=== PATIENT | male | born 1985 | race Caucasian/White ===

== ENCOUNTER 2016-11-09 05:38 | Emergency (ER) | payer BC ==
--- NOTE | 2016-11-09 06:00 | EDM.PDOC ---
ED HPI GENERAL MEDICAL PROBLEM - General Chief Complaint: Lower Extremity Injury/Pain Stated Complaint: TENDON PAIN IN LEFT ANKLE Time Seen by Provider: 11/09/16 05:50 Source of Information: Reports: Patient, RN - History of Present Illness INITIAL COMMENTS - FREE TEXT/NARRATIVE: recent pain posterior left ankle. 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 - Related Data Allergies Allergy/AdvReac Type Severity Reaction Status Date / Time acetaminophen [From Vicodin] Allergy Rash Verified 11/09/16 05:52 hydrocodone [From Vicodin] Allergy Rash Verified 11/09/16 05:52 Past Medical History Cardiovascular History: Denies: CAD, Heart Failure, Hypertension, ND Respiratory History: Reports: Asthma Gastrointestinal History: Denies: Cirrhosis Endocrine/Metabolic History: Denies: Diabetes, Type I, Diabetes, Type II Hematologic History: Denies: Anticoagulation Therapy Review of Systems - Review of Systems Review Of Systems: See Below (no other complaints) ED EXAM, GENERAL - Physical Exam Exam: See Below Free Text/Narrative:: alert nad left ankle: no deformity; tenderness over achilles tendon; pain with walking; pain with plantar ankle flexion; unable to stand on toes left side. Course - Vital Signs Last Recorded V/S: Last Vital Signs Temp 97.8 F 11/09/16 05:49 Pulse 93 11/09/16 05:49 Resp 18 11/09/16 05:49 BP 134/101 H 11/09/16 05:49 Pulse Ox 96 11/09/16 05:49 Departure - Departure Time of Disposition: 06:05 Disposition: Home, Self-Care 01 Condition: Fair Clinical Impression: Tendonitis, Achilles, left - Discharge Information Referrals: PCP,None [Primary Care Provider] - Additional Instructions: your blood pressure was elevated; perhaps due to pain. A recheck when you are feeling better is recommended ibuprofen as needed for pain crutches for partial weight bearing as tolerated May need to change boots if they seem to worsen your pain.
[2016-11-09 06:27] VITALS: BP 117/67
== END 2016-11-09 06:22 | disposition home or self-care (01) ==
LOC: MW.ED 05:38
DX: M76.62 Achilles tendinitis, left leg (principal); J45.909 Unspecified asthma, uncomplicated; Z88.6 Allergy status to analgesic agent; Z88.5 Allergy status to narcotic agent
CPT/HCPCS: 99281; 99283